=== PATIENT | male | born 1980 | race Caucasian/White ===

== ENCOUNTER 2023-05-18 19:13 | Inpatient (IN) | payer OTHER, SELFPAY ==
--- NOTE | 2023-05-18 19:12 | ECG_ITS ---
APPROVED REPORT Exam: Resting ECG HR:111 bpm ECG Measurements Heart Rate 111 AXES MT 156 P 57 QRSd 106 QRS -39 QT 322 T 70 QTc 387 Conclusion SINUS TACHYCARDIA LEFT ATRIAL ENLARGEMENT [-0.15mV P-WAVE IN V1/V2] LEFT AXIS DEVIATION [QRS AXIS < -30] MINIMAL ST DEPRESSION [0.025+ mV ST DEPRESSION] ABNORMAL ECG UNCONFIRMED REPORT Electronically signed by : Tk Dorantes MD 05/21/2023 20:42:08
[2023-05-18 19:17] VITALS: BP 140/94; PULSE 114; RESP 24; TEMP 36.7; O2SAT 99; BMI 29.0
--- NOTE | 2023-05-18 19:28 | PC.NURSE ---
I rounded on the pt and his family member. I let them know was in another room but would be right in. I asked if I could get them anything and they said they were okay at the moment. no new complaints at this time.
[2023-05-18 19:30] VITALS: BP 125/86; PULSE 103; RESP 19; O2SAT 97
--- NOTE | 2023-05-18 19:41 | CT_ITS ---
PROCEDURE INFORMATION: Exam: CTA Chest With Contrast Exam date and time: 05/18/2023 8:03 PM Age: 42 years old Clinical indication: Pain; Left-sided; Additional info: Hemoptysis, posterior L thoracic cage pain TECHNIQUE: Imaging protocol: Computed tomographic angiography of the chest with contrast. Exam focused on the arteries. 3D rendering (Not supervised by radiologist): MIP and/or 3D reconstructed images were created by the technologist. Radiation optimization: All CT scans at this facility use at least one of these dose optimization techniques: automated exposure control; mA and/or kV adjustment per patient size (includes targeted exams where dose is matched to clinical indication); or iterative reconstruction. Contrast material: ISOVUE; Contrast volume: 100 ml; Contrast route: INTRAVENOUS (IV); REPORTING DATA: Count of CT and Cardiac NM exams in prior 12 months: This patient has received 0 known CTs and 0 known cardiac nuclear medicine studies in the 12 months prior to the current study. COMPARISON: No relevant prior studies available. FINDINGS: Pulmonary arteries: Multiple pulmonary emboli within right upper, right lower and left lower lobe segmental/subsegmental pulmonary arteries. Pulmonary trunk normal in caliber measuring 2.8 cm Aorta: Unremarkable. No aortic aneurysm. No aortic dissection. Lungs: Left lower lobe consolidative and patchy opacities. Mild right lower lobe superior segment patchy opacities. Small lingular calcified granulomas. No masses. Pleural spaces: Unremarkable. No pneumothorax. No pleural effusion. Heart: Cardiomegaly. No pericardial effusion. Heart RV/LV ratio: 0.96. Coronary arteries: Mild coronary artery calcifications Lymph nodes: Shotty mediastinal lymph nodes. Liver: Punctate hepatic calcifications. Spleen: Punctate splenic calcifications. Bones/joints: Degenerative changes. No acute fracture. Soft tissues: Mild bilateral gynecomastia. IMPRESSION: 1. Multiple pulmonary emboli within right upper, right lower and left lower lobe segmental/subsegmental pulmonary arteries. No findings of right heart strain. 2. Left lower lobe, and to a much lesser extent, right lower lobe infiltrates which may be seen with infection, pulmonary edema or other alveolar process. 3. Cardiomegaly.
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
[2023-05-18] MEDS: KETOROLAC 30MG/ML VIAL 30 MG IV (19:50)
[2023-05-18] MEDS: ACETAMINOPHEN 500MG TAB 1000 MG PO (19:50)
[2023-05-18 19:51] LABS: Chloride 102 mmol/L (98-107)
[2023-05-18] MEDS: METHOCARBAMOL 500MG TABLET 1000 MG PO (19:51)
[2023-05-18 19:52] LABS: Basophils # 0.1 K/mm3 (0-0.2); Basophils % 0.2 % (0.1-2.0); Eosinophils # 0.1 K/mm3 (0.0-0.4); Eosinophils % 0.4 % (0.1-12.0); Hematocrit 40.5 % (42.0-52.0); Hemoglobin 12.8 g/dL (14.1-18.0); Lymphocytes # 1.6 K/mm3 (0.7-4.5); Lymphocytes % 6.5 % (10-50); Mean Corpuscular HGB Conc 31.5 g/dL (31.8-35.4); Mean Corpuscular Hemoglobin 29.4 pg (27.0-31.2); Mean Corpuscular Volume 93.3 fl (80-94); Mean Platelet Volume 8.7 fl (7.4-10.4); Monocytes # 2.8 K/mm3 (0.1-1.0); Monocytes % 11.6 % (1.7-9.3); Neutrophils # 19.4 K/mm3 (1.8-7.8); Neutrophils % 81.3 % (37.0-80.0); Platelet Count 325 K/mm3 (142-424); Potassium 4.7 mmoL/L (3.5-5.1); Red Blood Count 4.34 M/mm3 (4.60-6.20); Red Cell Distribution Width 14.6 % (11.5-17.5); Sodium 138 mmol/L (136-145); White Blood Count 23.8 K/mm3 (4.8-10.8)
[2023-05-18 19:54] LABS: Alanine Aminotransferase 48 U/L (12-78); Alkaline Phosphatase 99 U/L (38-126); Anion Gap 13.7 mEq/L (5-15); Aspartate Amino Transferase 41 U/L (17-59); Bilirubin,Total 1.3 mg/dl (0.2-1.3); Blood Urea Nitrogen 19 mg/dl (9-20); Carbon Dioxide 27 mmol/L (22.0-30.0); Creatinine Clearance Estimated 154 mL/min (50-200); Estimated Glomerular Filt Rate 93 ml/min (>60); GFR (African American) 113 ML/MIN (>60); MANUAL DIFFERENTIAL MANUAL DIFFERENTIAL (MANUAL DIFF)
[2023-05-18 19:55] LABS: Albumin Level 3.9 g/dl (3.5-5.0); Albumin/Globulin Ratio 1.1 (1.1-1.8); Calcium 8.7 mg/dl (8.4-10.2); Globulin 3.4 g/dL (1.3-3.2); Glucose 127 mg/dl (74-100); Total Protein,Serum 7.3 g/dl (6.3-8.2)
--- NOTE | 2023-05-18 19:58 | PC.NURSE ---
Pt medicated for pain per MAR at this time. Pt was given warm blanket. Lab called to draw blood cultures at this time. Pt and family member state no needs at this time.
[2023-05-18 20:00] VITALS: BP 124/81; PULSE 100; RESP 22; O2SAT 96
--- NOTE | 2023-05-18 20:01 | PC.NURSE ---
RT called at this time to collect VBG from lab.
[2023-05-18 20:04] LABS: NT Pro Brain Natriuretic Pep. 3760 pg/mL (0-125)
[2023-05-18 20:06] LABS: VBG Base Excess -3.7 mmol/L (-2.4-2.3); VBG HCO3 22.6 mmol/L (23-30); VBG Oxygen Saturation 66.9 % (50-70); VBG PCO2 46.3 mmol/L (35-51); VBG PH 7.31 mmol/L (7.31-7.41); VBG PO2 39.6 mmol/L (28-40); VBG Total CO2 24.1 mmol/L (23-27)
[2023-05-18 20:10] LABS: Troponin I < 0.01 ng/ml (0.00-0.034)
--- NOTE | 2023-05-18 20:15 | PC.NURSE ---
notified of code sepsis, states no fluids because pt has heart failure.
[2023-05-18 20:19] LABS: Lactic Acid 1.7 mmol/L (0.7-2.1)
[2023-05-18 20:22] LABS: Activated Partial Thrombo Time 25.4 seconds (22.8-30.6); INR 1.14 (0.9-1.1); Prothrombin Time 12.2 seconds (10.1-12.5)
[2023-05-18] MEDS: SODIUM CHLORIDE 0.9% 10ML SYR (RAD ONLY) 10 ML IV (20:22)
[2023-05-18] MEDS: 0.9 % SODIUM CHLORIDE 50 ML VIAL IV (20:22)
[2023-05-18] MEDS: IOPAMIDOL-370 (76%);100ML BOTTLE 100 ML IV (20:22)
[2023-05-18 20:31] VITALS: BP 133/87; PULSE 104; RESP 21; O2SAT 96
--- NOTE | 2023-05-18 20:36 | PC.NURSE ---
Lab at bedside to draw second set blood cultures at this time. 1st set drawn by Nneka Salguero, medic
--- NOTE | 2023-05-18 20:38 | PC.NURSE ---
Dr. Mcelroy does not want to admin the entire sepsis fluid bolus due the pt having fluid over load. Dr. Mcelroy just wants a 500ml bolus per the orders.
--- NOTE | 2023-05-18 20:48 | PC.NURSE ---
Blue band placed on pt
[2023-05-18] MEDS: CEFTRIAXONE 1 GM 1 GM in 0.9 % SODIUM CHLORIDE 50 ML IV (20:54)
[2023-05-18] MEDS: 0.9 % SODIUM CHLORIDE 1000ML 500 ML 999 ML IV (20:54)
[2023-05-18 21:02] LABS: Lymphocytes % 6 % (10-50); Monocytes % 6 % (2-9); Neutrophils % 88 % (42-76); Platelet Estimate Normal; RBC Morphology Normal; Total Cells Counted 100
--- NOTE | 2023-05-18 21:02 | PC.NURSE ---
MD Mcelroy wants to give 500ml bolus. Started at this time per MAR.
--- NOTE | 2023-05-18 21:25 | PC.NURSE ---
OBSERVATION ADMISSION TO 208 WITH DX OF PNA AND SEPSIS TO SERVICE OF THE HOSPITALIST.
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
[2023-05-18 21:42] VITALS: BP 142/81; PULSE 98; RESP 17; TEMP 36.8; O2SAT 97
--- NOTE | 2023-05-18 21:42 | PC.NURSE ---
report called to shweta braxton on med surg
--- NOTE | 2023-05-18 21:47 | PC.NURSE ---
pt arrived to floor via wheelchair @21:46
[2023-05-18] MEDS: AZITHROMYCIN 500 MG in 0.9 % SODIUM CHLORIDE 250 ML 250 MG IV (21:52)
[2023-05-18 21:55] LABS: D-Dimer 0.99 ug/mL (0.0-0.5)
[2023-05-18] MEDS: ENOXAPARIN 100MG/ML SYRINGE 100 MG SQ (22:11)
[2023-05-18 22:15] VITALS: BP 142/81; PULSE 97; RESP 17; TEMP 36.8; O2SAT 96; BMI 29.8
[2023-05-18 22:45] LABS: Troponin I < 0.01 ng/ml (0.00-0.034)
[2023-05-18] MEDS: MORPHINE 2MG/ML SYRINGE 2 MG IV (23:11)
[2023-05-19] VITALS (12 sets, daily range): BP systolic 108–158; BP diastolic 61–116; PULSE 83–115; RESP 17–24; TEMP 36.6–36.9; O2SAT 96–100; BMI 29.8
--- NOTE | 2023-05-19 | IR_ITS ---
APPROVED REPORT Patient Location: Inpatient 3D Artist: ABEBE Marshall RT (R) PROCEDURES Left heart catheterization Left ventriculogram Selective coronary angiogram Right femoral venous access Informed consent was obtained prior to the procedure. COMPLICATIONS None Estimated Blood Loss: Less than 10 ml TECHNIQUE One percent lidocaine was used to anesthetize the right anterior aspect of the right wrist. The right radial artery was accessed via the Seldinger technique and a 6 Iranian hydrophilic sheath was placed in the right radial artery. Following this one percent lidocaine was used to anesthetize the right anterior aspect of the right neck. The right internal jugular vein was accessed via the Seldinger technique and a 7 Iranian sheath was placed in the right internal jugular vein. Following this an arterial cocktail was administered using 5000U heparin, 2.5 mg verapamil, 1mg Lidocaine and 800mcg nitroglycerin into the right radial sheath. A papa catheter was used to perform left heart catheterization left ventriculogram and selective coronary angiography. 1% lidocaine was used anesthetize the right groin and the right femoral vein was accessed via the Salinger technique. Following diagnostic cardiac angiography it was decided not to pursue pulmonary artery embolectomy therefore both sheaths were removed and patient was transferred to the postop putting in stable condition ANGIOGRAPHIC RESULTS The left main artery Normal The left anterior descending artery Is proximally patent and then has a 40 to 50% stenosis proximal to a large bifurcating first diagonal artery. The first diagonal artery has 70% tandem stenoses. The LAD is then occluded after the large diagonal artery and fills scantly via right to left collaterals The circumflex artery Is nondominant. The first and second obtuse marginal artery are subtotally occluded proximally and fills scantly via left to left collaterals. The right coronary artery Is a dominant vessel and has ostial 50% stenosis followed by proximal concentric 80% stenosis with mid vessel 60 to 70% stenoses The SORIA ventriculogram reveals Severely dilated severely hypokinetic estimate ejection fraction 5 to 10% The left ventricular end-diastolic pressure Severely critically elevated at 40 mmHg IMPRESSION Severe to critical three-vessel coronary disease as described above with a chronically occluded LAD which fills scantly via right to left collaterals Chronically occluded nondominant circumflex artery which fills scantly via left to left collaterals Severe left ventricular dilatation with severely reduced ejection fraction Severe to critical elevated LVEDP Persistent pulmonary embolism PLAN 1. Bumex 4 mg IV now 2. Efforts will be made to transfer patient to [facility] for evaluation of advanced left ventricular support versus possible revascularization 3. Start heparin drip for treatment of PEs Electronically signed by : Paul Bolton MD 05/19/2023 14:27:17
[2023-05-19 01:57] LABS: Troponin I < 0.01 ng/ml (0.00-0.034)
[2023-05-19] MEDS: MORPHINE 2MG/ML SYRINGE 2 MG IV ×2 (03:44→11:30)
[2023-05-19] MEDS: KETOROLAC 30MG/ML VIAL 30 MG IV ×3 (04:03→15:14)
--- NOTE | 2023-05-19 05:21 | PC.NURSE ---
Since arriving to the floor the patient was able to rest some. Patient pain was controlled when he arrived to the floor. The patient woke up around 3:40 in horrible pain. Morphine was not helping the patient so RN called the [facility] and got a dose of Toradol patient stated that helped the most in the ER. The patient did also get in the shower to see if the warm water would help at all. No other issues besides pain control were noted this shift
[2023-05-19] MEDS: FUROSEMIDE 100MG/10ML VIAL 80 MG IV (05:59)
[2023-05-19 06:37] LABS: Alanine Aminotransferase 38 U/L (12-78); Albumin Level 3.4 g/dl (3.5-5.0); Albumin/Globulin Ratio 1.1 (1.1-1.8); Alkaline Phosphatase 92 U/L (38-126); Anion Gap 6.5 mEq/L (5-15); Aspartate Amino Transferase 30 U/L (17-59); Basophils # 0.1 K/mm3 (0-0.2); Basophils % 0.3 % (0.1-2.0); Blood Urea Nitrogen 25 mg/dl (9-20); Calcium 8.1 mg/dl (8.4-10.2); Carbon Dioxide 30 mmol/L (22.0-30.0); Chloride 103 mmol/L (98-107); Creatinine Clearance Estimated 129 mL/min (50-200); Eosinophils # 0.1 K/mm3 (0.0-0.4); Estimated Glomerular Filt Rate 74 ml/min (>60); GFR (African American) 90 ML/MIN (>60); Glucose 136 mg/dl (74-100); Lymphocytes # 1.4 K/mm3 (0.7-4.5); Potassium 4.5 mmoL/L (3.5-5.1); Red Cell Distribution Width 14.6 % (11.5-17.5); Sodium 135 mmol/L (136-145); Total Protein,Serum 6.4 g/dl (6.3-8.2)
[2023-05-19 07:07] LABS: Eosinophils % 0.3 % (0.1-12.0); Hematocrit 37.4 % (42.0-52.0); Lymphocytes % 6.8 % (10-50); Mean Corpuscular HGB Conc 30.7 g/dL (31.8-35.4); Mean Corpuscular Hemoglobin 29.3 pg (27.0-31.2); Mean Corpuscular Volume 95.3 fl (80-94); Mean Platelet Volume 8.6 fl (7.4-10.4); Monocytes # 1.9 K/mm3 (0.1-1.0); Monocytes % 9.3 % (1.7-9.3); Neutrophils # 16.8 K/mm3 (1.8-7.8); Neutrophils % 83.4 % (37.0-80.0); Platelet Count 293 K/mm3 (142-424); Red Blood Count 3.92 M/mm3 (4.60-6.20); White Blood Count 20.1 K/mm3 (4.8-10.8)
[2023-05-19 07:12] LABS: MANUAL DIFFERENTIAL MANUAL DIFFERENTIAL (MANUAL DIFF)
--- NOTE | 2023-05-19 08:10 | HMH.PHAINT1 ---
Pharmacy Intervention Comments: Home med list verified with patient at bedside and with external pharmacy list.
[2023-05-19] MEDS: ENOXAPARIN 100MG/ML SYRINGE 100 MG SQ (08:32)
[2023-05-19] MEDS: METOPROLOL SUCCINATE XL 25MG TABLET 25 MG PO (08:32)
[2023-05-19] MEDS: PANTOPRAZOLE 40MG TABLET 40 MG PO (08:32)
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
--- NOTE | 2023-05-19 08:48 | CA_ITS ---
FINAL REPORT CLINICAL HISTORY: BILATERAL PE'S,SOA,EDEMA LE'S COMPARISON: None FINDINGS: Color Doppler, duplex Doppler and compression sonography of the bilateral lower extremities was performed. On the right side, there is no evidence of deep venous thrombosis from the level of the groin to the calf. The deep veins are patent and compressible. On the left side, there is thrombus present in the left popliteal vein. The remainder of the veins on the left side are compressible and patent. IMPRESSION: Thrombus is present in the left popliteal vein. No evidence of deep venous thrombosis is present in the right leg. Reviewed, Interpreted and Dictated by Jeff Tracy III, MD Transcribed by Vanessa Gordon Authenticated and [facility]
[2023-05-19] MEDS: ACETAMINOPHEN 325MG TAB 650 MG PO (09:39)
[2023-05-19 10:08] LABS: Lymphocytes % 3 % (10-50); Monocytes % 11 % (2-9); Neutrophils % 86 % (42-76); Total Cells Counted 100
[2023-05-19 10:11] LABS: Anisocytosis 1+; Hypochromasia 1+; Platelet Estimate Normal; RBC Morphology Normal
[2023-05-19 10:27] LABS: Hemoglobin 11.6 g/dL (14.1-18.0)
[2023-05-19] MEDS: SACUBITRIL/VALSARTAN 24-26MG TABLET 1 EACH PO (11:32)
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
--- NOTE | 2023-05-19 11:40 | PC.NURSE ---
Courtesy Round Patient asleep with visitors at bedside.Trash emptied and linens. Call light within reach
--- NOTE | 2023-05-19 12:16 | P.PN_ITS ---
Subjective *Date: 05/19/23 *Time: 12:16 Interval history: patient was seen and evaluated at the bedside. feels overall better since admission, No reported acute events overnight Exam Data for Last 24 hours Vital signs and Labs for Last 24 Hours: Temp Pulse Resp BP Pulse Ox O2 Del Method 97.9 F 104 H 24 154/116 H 97 Room Air 05/19/23 12:15 05/19/23 12:15 05/19/23 12:15 05/19/23 12:15 05/19/23 12:15 05/19/23 12:15 Laboratory Results - last 24 hr 05/18/23 19:10: WBC 23.8 H*, RBC 4.34 L, Hgb 12.8 L, Hct 40.5 L, MCV 93.3, MCH 29.4, MCHC 31.5 L, RDW 14.6, Plt Count 325, MPV 8.7, Neut % (Auto) 81.3 H, Lymph % (Auto) 6.5 L, [place] % (Auto) 11.6 H, Eos % (Auto) 0.4, Baso % (Auto) 0.2, Neut # (Auto) 19.4 H, Lymph # (Auto) 1.6, [place] # (Auto) 2.8 H, Eos # (Auto) 0.1, Baso # (Auto) 0.1, Total Counted 100, Neutrophils % (Manual) 88 H, Lymphocytes % (M anual) 6 L, Monocytes % (Manual) 6, Platelet Estimate Normal, RBC Morphology Normal, PT 12.2, INR 1.14 H, APTT 25.4, D-Dimer 0.99 H, Sodium 138, Potassium 4.7, Chloride 102, Carbon Dioxide 27, Anion Gap 13.7, BUN 19, Creatinine 0.90, Estimated Creat Clear 154, Estimated GFR 93, Est GFR ( Amer) 113, Glucose 127 H, Lactate 1.7, Calcium 8.7, Total Bilirubin 1.3, AST 41, ALT 48, Alkaline Phosphatase 99, Troponin I < 0.01, NT-Pro-B Natriuret Pep 3760 H, Total Protein 7.3, Albumin 3.9, Globulin 3.4 H, Albumin/Globulin Ratio 1.1 05/18/23 19:41: VBG pH 7.31, VBG pCO2 46.3, VBG pO2 39.6, VBG HCO3 22.6 L, VBG Total CO2 24.1, VBG O2 Saturation 66.9, VBG Base Excess -3.7 L 05/18/23 22:15: Troponin I < 0.01 05/19/23 01:30: Troponin I < 0.01 05/19/23 06:08: WBC 20.1 H*, RBC 3.92 L, Hgb 11.6 L, Hct 37.4 L, MCV 95.3 H, MCH 29.3, MCHC 30.7 L, RDW 14.6, Plt Count 293, MPV 8.6, Neut % (Auto) 83.4 H, Lymph % (Auto) 6.8 L, [place] % (Auto) 9.3, Eos % (Auto) 0.3, Baso % (Auto) 0.3, Neut # (Auto) 16.8 H, Lymph # (Auto) 1.4, [place] # (Auto) 1.9 H, Eos # (Auto) 0.1, Baso # (Auto) 0.1, Total Counted 100, Neutrophils % (Manual) 86 H, Lymphocytes % (Manual) 3 L, Monocytes % (Manual) 11 H, Platelet Estimate Normal, RBC Morphology Normal, Hypochromasia 1+, Anisocytosis 1+, Sodium 135 L, Potassium 4.5, Chloride 103, Carbon Dioxide 30, Anion Gap 6.5, BUN 25 H D, Creatinine 1.10 D, Estimated Creat Clear 129, Estimated GFR 74, Est GFR ( Amer) 90 D, Glucose 136 H, Calcium 8.1 L, Magnesium 2.0, Total Bilirubin 1.0, AST 30 D, ALT 38, Alkaline Phosphatase 92, Total Protein 6.4, Albumin 3.4 L D, Globulin 3.0, Albumin/Globulin Ratio 1.1 I & O for Last 24 hours: Intake & Output 05/16/23 05/17/23 05/18/23 05/19/23 23:59 23:59 23:59 23:59 Intake Total 710 / 710 Output Total 0 / 0 Balance 710 / 710 Weight 102.2 kg 102.2 kg Constitutional Constitutional: no acute distress *Routine HEENT Exam Head: Present normocephalic Eye: Present EOMI and PERRL ENT: Present mucous membranes moist *Routine Neck Exam Neck: Present supple; Absent lymphadenopathy *Routine Respiratory Exam Respiratory: Present CTA bilaterally *Routine Cardiovascular Exam Cardiovascular: Present RRR *Routine Abdominal Exam Abdominal: Present soft and normoactive bowel sounds; Absent tenderness *Routine Extremities Exam Extremities: Absent cyanosis, clubbing or edema *Routine Skin Exam Skin: Present warm; Absent rash *Routine Neurological Exam Neurological: Present alert and oriented X3 Assessment and Plan *Assessment and plan (1) Pulmonary embolism: Status: Acute Qualifiers: Pulmonary embolism type: multiple subsegmental (without acute cor pulmonale) Qualified Code(s): I26.94 - Multiple subsegmental pulmonary emboli without acute cor pulmonale Category: Medical Code(s): I26.99 - Other pulmonary embolism without acute cor pulmonale (2) Dyspnea: Status: Acute Qualifiers: Dyspnea type: shortness of breath Qualified Code(s): R06.02 - Shortness of breath Category: Medical Code(s): R06.00 - Dyspnea, unspecified (3) Left lower lobe pneumonia: Status: Acute Qualifiers: Pneumonia type: due to unspecified organism Qualified Code(s): J18.9 - Pneumonia, unspecified organism Category: Medical Code(s): J18.9 - Pneumonia, unspecified organism (4) Elevated brain natriuretic peptide (BNP) level: Status: Acute Category: Medical Code(s): R79.89 - Other specified abnormal findings of blood chemistry (5) Localized edema due to fluid overload: Status: Acute Category: Medical Code(s): E87.70 - Fluid overload, unspecified (6) Current smoker: Status: Acute Category: Social Hx Code(s): F17.200 - Nicotine dependence, unspecified, uncomplicated Plan 2-year-old male with no significant known past medical history other than former drugs user, current smoker that almost week ago went to his primary doctor concerning of peripheral edema and SOB. presented today with an episode of hemoptysis. On arrival, patient with significant respiratory distress, tachycardic. Complaining of pain on the left thoracic back, with peripheral edema. Initial workup included CTA of the chest, images reviewed. There is a concern for multiple bilateral PEs. No right heart strain concern. There is also a left lower pneumonia, with right lobar edema. Labs are significant for leukocytosis. Findings discussed with the ER. Admitted for admission. Plan as follow: -Multiple subsegmental pulmonary embolism. Bilateral: Pulmonology consult Started on Lovenox therpeutic dosage Oxygen as needed Monitor vital signs per unit per unit protocol -Left lower pneumonia: Started on ceftriaxone and Zithromax Blood cultures pending Monitor labs in the morning Monitor for sepsis -Elevated BNP with peripheral lower edema: Suspected drug-induced heart failure: 1 dose of Lasix given. Cardiology consult Obtain echo Current smoker: On nicotine patch. Education provided on smoke cessation Lovenox full dose. On Protonix for GI prophylaxis Full code continue Abx, Lovenox treatment dose, dc 1-2 days
[2023-05-19] MEDS: 0.9 % SODIUM CHLORIDE 500 ML 25 ML IV (13:39)
[2023-05-19] MEDS: HEPARIN 1,000 UNITS/ML 10ML VIAL (CATH LAB) 10000 UNIT IV (13:39)
[2023-05-19] MEDS: LIDOCAINE 1% 10ML MDV 20 ML IJ (13:39)
[2023-05-19] MEDS: HEPARIN 1,000 UNITS/500ML NS (CATH LAB) 3000 UNIT IV (13:39)
[2023-05-19] MEDS: NITROGLYCERIN 800MCG/8ML SYR (CATH LAB) 800 MCG IA (13:40)
[2023-05-19] MEDS: diphenhydrAMINE 50MG/ML VIAL 50 MG IV (13:40)
[2023-05-19] MEDS: FENTANYL 100MCG/2ML VIAL 25 MCG IV (13:55)
[2023-05-19] MEDS: MIDAZOLAM HCL 1MG/1ML 5ML VIAL 1 MG IV (13:56)
[2023-05-19] MEDS: BUMETANIDE IV (14:17)
[2023-05-19] MEDS: FUROSEMIDE 40MG/4ML VIAL 40 MG IV (14:17)
[2023-05-19] MEDS: SODIUM CHLORIDE 0.9% IV (14:17)
[2023-05-19] MEDS: IOPAMIDOL-370 (76%);100ML BOTTLE 80 ML IV (14:36)
[2023-05-19 14:51] LABS: Microscopic, Urine URINE MICROSCOPIC (MICROSCOPIC)
[2023-05-19 14:55] LABS: Appearance,Urine CLEAR (Clear); Bilirubin,Urine Negative (Negative); Blood, Urine TRACE-I (Negative); Color,Urine YELLOW (Yellow); Glucose,Urine (UA) Negative (Negative); Ketones,Urine Negative (Negative); Leukocyte Esterase,Urine Negative (Negative); Nitrate,Urine Negative (Negative); Protein,Urine Negative (Negative); Specific Gravity, Urine 1.015 (1.005-1.030); Urobilinogen,Urine 0.2 EU/dl (0.2)
[2023-05-19 15:03] LABS: PTT Heparin (inpatient only) 90.5 Seconds (23.6-34.0)
[2023-05-19 15:15] LABS: Amorphous Sediment,Urine Trace /lpf; RBC,Urine Occasional #/hpf (0-3); Squamous Epithelial Cell,Urine Occasional #/hpf (0-5)
[2023-05-19] MEDS: HEPARIN SODIUM,PORCINE/D5W 500 ML 20 UNIT IV (15:19)
--- NOTE | 2023-05-19 15:55 | P.DS_ITS ---
General Admission date:: 05/18/23 Discharge date: 05/19/23 HPI HPI HPI: This is a 42-year-old male with no significant known past medical history other than former drugs user, current smoker that almost week ago went to his primary doctor concerning of peripheral edema and SOB. they started on Lasix and metoprolol (no reported cardiovascular evaluation)/ Today he presented to the emergency department for evaluation of hemoptysis. Onset was acute, occurring over the last 24 to 48 hours. Patient has been coughing bright red blood. He has shortness of breath laying down at baseline however it is much worse than normal. He has left posterior inferior thoracic cage pain with deep inspiration. He has been told that he has water around his lungs before which is why he is on Lasix. He has chest pain that occurs only with deep inspiration, does not occur at rest. No others complaints at this time. Admitted for further work up and treatment. Hospital Course Hospital Course Hospital Course: 42 year-old male with no significant known past medical history other than former drugs user, current smoker that almost week ago went to his primary doctor concerning of peripheral edema and SOB. presented today with an episode of hemoptysis. On arrival, patient with significant respiratory distress, tach ycardic. Complaining of pain on the left thoracic back, with peripheral edema. Initial workup included CTA of the chest, images reviewed. There is a concern for multiple bilateral PEs. No right heart strain concern. There is also a left lower pneumonia, with right lobar edema. Labs are significant for leukocytosis. Findings discussed with the ER. Admitted for admission. Plan as follow: -Multiple subsegmental pulmonary embolism. Bilateral: Pulmonology consult Started on Lovenox therpeutic dosage Oxygen as needed Monitor vital signs per unit per unit protocol -Left lower pneumonia: Started on ceftriaxone and Zithromax Blood cultures pending Monitor labs in the morning Monitor for sepsis -Elevated BNP with peripheral lower edema: Suspected drug-induced heart failure: 1 dose of Lasix given. Cardiology consult Obtain echo Current smoker On nicotine patch. Education provided on smoke cessation Lovenox full dose. On Protonix for GI prophylaxis Full code continue Abx, Lovenox treatment dose, dc 1-2 days plan to transfer to Exam Data for Last 24 hours Vital signs and Labs for Last 24 Hours: Temp Pulse Resp BP Pulse Ox O2 Del Method O2 Flow Rate 97.9 F 93 H 18 132/75 100 Simple Mask 6 05/19/23 12:15 05/19/23 15:00 05/19/23 15:00 05/19/23 15:00 05/19/23 15:00 05/19/23 15:00 05/19/23 15:00 Laboratory Results - last 24 hr 05/18/23 19:10: WBC 23.8 H*, RBC 4.34 L, Hgb 12.8 L, Hct 40.5 L, MCV 93.3, MCH 29.4, MCHC 31.5 L, RDW 14.6, Plt Count 325, MPV 8.7, Neut % (Auto) 81.3 H, Lymph % (Auto) 6.5 L, [place] % (Auto) 11.6 H, Eos % (Auto) 0.4, Baso % (Auto) 0.2, Neut # (Auto) 19.4 H, Lymph # (Auto) 1.6, [place] # (Auto) 2.8 H, Eos # (Auto) 0.1, Baso # (Auto) 0.1, Total Counted 100, Neutrophils % (Manual) 88 H, Lymphocytes % (Manual) 6 L, Monocytes % (Manual) 6, Platelet Estimate Normal, RBC Morphology Normal, PT 12.2, INR 1.14 H, APTT 25.4, D-Dimer 0.99 H, Sodium 138, Potassium 4.7, Chloride 102, Carbon Dioxide 27, Anion Gap 13.7, BUN 19, Creatinine 0.90, Estimated Creat Clear 154, Estimated GFR 93, Est GFR ( Amer) 113, Glucose 127 H, Lactate 1.7, Calcium 8.7, Total Bilirubin 1.3, AST 41, ALT 48, Alkaline Phosphatase 99, Troponin I < 0.01, NT-Pro-B Natriuret Pep 3760 H, Total Protein 7.3, Albumin 3.9, Globulin 3.4 H, Albumin/Globulin Ratio 1.1 05/18/23 19:41: VBG pH 7.31, VBG pCO2 46.3, VBG pO2 39.6, VBG HCO3 22.6 L, VBG Total CO2 24.1, VBG O2 Saturation 66.9, VBG Base Excess -3.7 L 05/18/23 22:15: Troponin I < 0.01 05/19/23 01:30: Troponin I < 0.01 05/19/23 06:08: WBC 20.1 H*, RBC 3.92 L, Hgb 11.6 L, Hct 37.4 L, MCV 95.3 H, MCH 29.3, MCHC 30.7 L, RDW 14.6, Plt Count 293, MPV 8.6, Neut % (Auto) 83.4 H, Lymph % (Auto) 6.8 L, [place] % (Auto) 9.3, Eos % (Auto) 0.3, Baso % (Auto) 0.3, Neut # (Auto) 16.8 H, Lymph # (Auto) 1.4, [place] # (Auto) 1.9 H, Eos # (Auto) 0.1, Baso # (Auto) 0.1, Total Counted 100, Neutrophils % (Manual) 86 H, Lymphocytes % (Manual) 3 L, Monocytes % (Manual) 11 H, Platelet Estimate Normal, RBC Morphology Normal, Hypochromasia 1+, Anisocytosis 1+, Sodium 135 L, Potassium 4.5, Chloride 103, Carbon Dioxide 30, Anion Gap 6.5, BUN 25 H D, Creatinine 1.10 D, Estimated Creat Clear 129, Estimated GFR 74, Est GFR ( Amer) 90 D, Glucose 136 H, Calcium 8.1 L, Magnesium 2.0, Total Bilirubin 1.0, AST 30 D, ALT 38, Alkaline Phosphatase 92, Total Protein 6.4, Albumin 3.4 L D, Globulin 3.0, Albumin/Globulin Ratio 1.1 05/19/23 14:00: APTT 90.5 H* 05/19/23 14:50: Urine Color Yellow, Urine Appearance Clear, Urine pH 6.0, Ur Specific [place] 1.015, Urine Protein Negative, Urine Glucose (UA) Negative, Urine Ketones Negative, Urine Blood Trace-i, Urine Nitrate Negative, Urine Bilirubin Negative, Urine Urobilinogen 0.2, Ur Leukocyte Esterase Negative, Urine RBC Occasional, Urine WBC None, Ur Squamous Epith Cells Occasional, Amorphous Sediment Trace, Urine Bacteria None I & O for Last 24 hours: Intake & Output 05/16/23 05/17/23 05/18/23 05/19/23 23:59 23:59 23:59 23:59 Intake Total 710 / 710 Output Total 1999 Balance -1290 / -1290 Weight 102.2 kg 102.2 kg Constitutional Constitutional: no acute distress *Routine HEENT Exam Head: Present normocephalic Eye: Present EOMI and PERRL ENT: Present mucous membranes moist *Routine Neck Exam Neck: Present supple; Absent lymphadenopathy *Routine Respiratory Exam Respiratory: Present CTA bilaterally *Routine Cardiovascular Exam Cardiovascular: Present RRR *Routine Abdominal Exam Abdominal: Present soft and normoactive bowel sounds; Absent tenderness *Routine Extremities Exam Extremities: Absent cyanosis, clubbing or edema *Routine Skin Exam Skin: Present warm; Absent rash *Routine Neurological Exam Neurological: Present alert and oriented X3 Results Data Completed and Pending Labs on day of discharge: Labs from last 24 hours 05/19/23 05/19/23 05/19/23 14:50 14:00 06:08 WBC 20.1 H* RBC 3.92 L Hgb 11.6 L Hct 37.4 L MCV 95.3 H MCH 29.3 MCHC 30.7 L RDW 14.6 Plt Count 293 MPV 8.6 Neut % (Auto) 83.4 H Lymph % (Auto) 6.8 L [place] % (Auto) 9.3 Eos % (Auto) 0.3 Baso % (Auto) 0.3 Neut # (Auto) 16.8 H Lymph # (Auto) 1.4 [place] # (Auto) 1.9 H Eos # (Auto) 0.1 Baso # (Auto) 0.1 Total Counted 100 Neutrophils % (Manual) 86 H Lymphocytes % (Manual) 3 L Monocytes % (Manual) 11 H Platelet Estimate Normal RBC Morphology Normal Hypochromasia 1+ Anisocytosis 1+ PT INR APTT 90.5 H* D-Dimer VBG pH VBG pCO2 VBG pO2 VBG HCO3 VBG Total CO2 VBG O2 Saturation VBG Base Excess Sodium 135 L Potassium 4.5 Chloride 103 Carbon Dioxide 30 Anion Gap 6.5 BUN 25 H D Creatinine 1.10 D Estimated Creat Clear 129 Estimated GFR 74 Est GFR ( Amer) 90 D Glucose 136 H Lactate Calcium 8.1 L Magnesium 2.0 Total Bilirubin 1.0 AST 30 D ALT 38 Alkaline Phosphatase 92 Troponin I NT-Pro-B Natriuret Pep Total Protein 6.4 Albumin 3.4 L D Globulin 3.0 Albumin/Globulin Ratio 1.1 Urine Color Yellow Urine Appearance Clear Urine pH 6.0 Ur Specific [place] 1.015 Urine Protein Negative Urine Glucose (UA) Negative Urine Ketones Negative Urine Blood Trace-i Urine Nitrate Negative Urine Bilirubin Negative Urine Urobilinogen 0.2 Ur Leukocyte Esterase Negative Urine RBC Occasional Urine WBC None Ur Squamous Epith Cells Occasional Amorphous Sediment Trace Urine Bacteria None 05/19/23 05/18/23 05/18/23 01:30 22:15 19:41 WBC RBC Hgb Hct MCV MCH MCHC RDW Plt Count MPV Neut % (Auto) Lymph % (Auto) [place] % (Auto) Eos % (Auto) Baso % (Auto) Neut # (Auto) Lymph # (Auto) [place] # (Auto) Eos # (Auto) Baso # (Auto) Total Counted Neutrophils % (Manual) Lymphocytes % (Manual) Monocytes % (Manual) Platelet Estimate RBC Morphology Hypochromasia Anisocytosis PT INR APTT D-Dimer VBG pH 7.31 VBG pCO2 46.3 VBG pO2 39.6 VBG HCO3 22.6 L VBG Total CO2 24.1 VBG O2 Saturation 66.9 VBG Base Excess -3.7 L Sodium Potassium Chloride Carbon Dioxide Anion Gap BUN Creatinine Estimated Creat Clear Estimated GFR Est GFR ( Amer) Glucose Lactate Calcium Magnesium Total Bilirubin AST ALT Alkaline Phosphatase Troponin I < 0.01 < 0.01 NT-Pro-B Natriuret Pep Total Protein Albumin Globulin Albumin/Globulin Ratio Urine Color Urine Appearance Urine pH Ur Specific [place] Urine Protein Urine Glucose (UA) Urine Ketones Urine Blood Urine Nitrate Urine Bilirubin Urine Urobilinogen Ur Leukocyte Esterase Urine RBC Urine WBC Ur Squamous Epith Cells Amorphous Sediment Urine Bacteria 05/18/23 19:10 WBC 23.8 H* RBC 4.34 L Hgb 12.8 L Hct 40.5 L MCV 93.3 MCH 29.4 MCHC 31.5 L RDW 14.6 Plt Count 325 MPV 8.7 Neut % (Auto) 81.3 H Lymph % (Auto) 6.5 L [place] % (Auto) 11.6 H Eos % (Auto) 0.4 Baso % (Auto) 0.2 Neut # (Auto) 19.4 H Lymph # (Auto) 1.6 [place] # (Auto) 2.8 H Eos # (Auto) 0.1 Baso # (Auto) 0.1 Total Counted 100 Neutrophils % (Manual) 88 H Lymphocytes % (Manual) 6 L Monocytes % (Manual) 6 Platelet Estimate Normal RBC Morphology Normal Hypochromasia Anisocytosis PT 12.2 INR 1.14 H APTT 25.4 D-Dimer 0.99 H VBG pH VBG pCO2 VBG pO2 VBG HCO3 VBG Total CO2 VBG O2 Saturation VBG Base Excess Sodium 138 Potassium 4.7 Chloride 102 Carbon Dioxide 27 Anion Gap 13.7 BUN 19 Creatinine 0.90 Estimated Creat Clear 154 Estimated GFR 93 Est GFR ( Amer) 113 Glucose 127 H Lactate 1.7 Calcium 8.7 Magnesium Total Bilirubin 1.3 AST 41 ALT 48 Alkaline Phosphatase 99 Troponin I < 0.01 NT-Pro-B Natriuret Pep 3760 H Total Protein 7.3 Albumin 3.9 Globulin 3.4 H Albumin/Globulin Ratio 1.1 Urine Color Urine Appearance Urine pH Ur Specific [place] Urine Protein Urine Glucose (UA) Urine Ketones Urine Blood Urine Nitrate Urine Bilirubin Urine Urobilinogen Ur Leukocyte Esterase Urine RBC Urine WBC Ur Squamous Epith Cells Amorphous Sediment Urine Bacteria DS: Diagnosis Discharge Diagnosis (1) Pulmonary embolism: Status: Acute Code(s): I26.99 - Other pulmonary embolism without acute cor pulmonale Qualifiers: Pulmonary embolism type: multiple subsegmental (without acute cor pulmonale) Qualified Code(s): I26.94 - Multiple subsegmental pulmonary emboli without acute cor pulmonale (2) Elevated brain natriuretic peptide (BNP) level: Status: Acute Code(s): R79.89 - Other specified abnormal findings of blood chemistry (3) Left lower lobe pneumonia: Status: Acute Code(s): J18.9 - Pneumonia, unspecified organism Qualifiers: Pneumonia type: due to unspecified organism Qualified Code(s): J18.9 - Pneumonia, unspecified organism (4) Current smoker: Status: Acute Code(s): F17.200 - Nicotine dependence, unspecified, uncomplicated (5) Dyspnea: Status: Acute Code(s): R06.00 - Dyspnea, unspecified Qualifiers: Dyspnea type: shortness of breath Qualified Code(s): R06.02 - Shortness of breath (6) Cardiomyopathy: Status: Acute Code(s): I42.9 - Cardiomyopathy, unspecified Qualifiers: Cardiomyopathy type: ischemic Qualified Code(s): I25.5 - Ischemic cardiomyopathy (7) CHF (congestive heart failure): Status: Acute Code(s): I50.9 - Heart failure, unspecified Qualifiers: Heart failure chronicity: acute Heart failure type: systolic Qualified Code(s): I50.21 - Acute systolic (congestive) heart failure Meds Home Medications and Allergies Home Medications Medication Instructions Recorded Confirmed Type guaifenesin 600 mg tablet, 600 mg PO BID PRN Cough 04/20/23 05/18/23 History extended release 12 hr (Mucinex) metoprolol succinate 25 mg 25 mg PO DAILY High Blood Pressure 05/18/23 05/18/23 History tablet,extended release 24 hr New Prescriptions to Start Prescriptions: Allergies Allergy/AdvReac Type Severity Reaction Status Date / Time No Known Allergies Allergy Verified 04/20/23 13:38 Discharge Plan Disposition Patient Disposition: Xfer Short-Term Hosp Condition: Fair Discharge Order Discharge Orders: Discharge Order (Routine); Ordered 05/19/23 Ordered By: Rosalee Dunlap Follow up Plan Prescriptions/Medication Reconciliation: No Action guaifenesin [Mucinex] 600 mg tablet extended release 12hr 600 mg PO BID PRN (Reason: Cough) metoprolol succinate 25 mg tablet extended release 24 hr 25 mg PO DAILY Problem Reconciliation Problems Reviewed?: Yes Patient Discharge Instructions Stand Alone Forms: Transfer Record Patient Instructions: Pulmonary Embolism, DI for Pneumonia -- Adult, DI for Pulmonary Embolism, DI for Sepsis -- Adult Providers Primary Care Provider: Vega Dukes Admit Provider: Forrest Carlin Attending Provider: Forrest Carlin
--- NOTE | 2023-05-19 21:33 | CA_ITS ---
APPROVED REPORT EXAM: Comprehensive 2D, Doppler, and color-flow Echocardiogram Laserist: STARR Escobedo, RVS Ht: 6 ft 0 in Wt: 225lbs BSA: 2.24 BP: 133/87 mmHg Indications: Decreased LVF per ER scan, SOA, Pneumonia, Pulmonary emboli, Pedal edema X 1 month 2D Dimensions IVSd 1.04 cm M: 0.6-1.2 LVEF (Visual) 15.90 % PWd 1.08 cm M: 0.6 - 1.2 LA Volume 129.70 mL LVDd 7.43 cm M: 4.2 - 5.9 LA Volume Index [id number] mL/m2 (M/F) 16-34 LVDs 6.88 cm M: 2.5 - 4.0 Left Atrium 4.55 cm M: 3.0 - 4.0 M-Mode Dimensions RVDd 2.68 cm (0.9-2.6) LA Diam 4.75 cm (1.9-4.0) LVDd 6.78 cm (3.5-5.7) LVDs 7.09 cm (3.5-5.7) IVSd 1.12 cm (0.6-1.1) PWd 1.25 cm (0.6-1.1) EF (Teich) 10.60% EPSs 2.87 cm FS 4.60% EDV (Teich) 237.70 mL TAPSE 1.88 (<1.7) ESV (Teich) 262.90 mL LV Diastology E Decel Time 177 (160-240 msec) E/A Ratio 2.79 MED A' 6.30 cm/s LAT A' 8.70 cm/s Aortic Valve JAJA Index 1.05 cm2/m2 AoV Peak Gt. 99.0 (50-130 cm/s) AO Peak GR. 3.90 mmHg AO Mean GR. 1.90 (<5 mmHg) AO VTI 14.4 (18-25 cm) JAJA (VTI) 2.41 (2.5-4.5 cm2) Mitral Valve MV A Velocity 42.0 (40-130 cm/s) E/A Ratio 2.79 Tricuspid Valve TR P. Velocity 250.00 cm/s RAP Estimate 10.00 mmHg RVSP 34.90 mmHg Left Ventricle Left ventricle is severely dilated (LVEDVi 120 ml/m2). Left ventricular systolic function is severely decreased. There is normal left ventricular wall thickness. There is severe global hypokinesis present. There is akinesis of the septal and anteroseptal LV prabhakar. Grade 3 diastolic dysfunction is present. LVEF is 15%. Right Ventricle Right ventricle is moderate to severely dilated. Right ventricle is moderately hypokinetic. Atria Left atrium is severely dilated. Right atrium is severely dilated. Aortic Valve The aortic valve opens well. There is no aortic valvular stenosis. No aortic regurgitation is present. Mitral Valve The mitral valve is normal in structure. No evidence of mitral valve stenosis. Mild mitral regurgitation. Tricuspid Valve The tricuspid valve leaflets are thin and pliable. Mild tricuspid regurgitation. RVSP is 20-25 mmHg. Pulmonic Valve The pulmonary valve is normal in structure. Trace pulmonic regurgitation. Great Vessels The aortic root is normal in size. The ascending aorta is normal in size. IVC is normal in size and collapses >50% with inspiration. Pericardium There is no pericardial effusion. Other Information Study Quality: Adequate Conclusion Severely dilated LV with severe reduction in LV systolic function (LVEF 15%). Grade 3 diastolic dysfunction. Moderate to severe RV dilation with moderate reduction in RV function. Severe biatrial dilation. Mild MR. Mild TR. In addition to the workup for the patient's known acute PE, further evaluation for the etiology of the reduction in biventricular function is recommended with ischemia evaluation, as well as cardiac MRI (cardiomyopathy protocol). Electronically signed by : Anna Segura MD 05/19/2023 11:53:29
== END 2023-05-19 16:11 | disposition home or self-care (01) | DRG 175 ==
LOC: ER 19:24 → 2ND 22:03
PROVIDERS: Internal Medicine; Nurse Practitioner Family; Admitting Provider Internal Medicine Adolescent Medicine; Emergency Provider Emergency Medicine; PCP Family Medicine; Visit Provider Internal Medicine Adolescent Medicine
PROC: 4A023N7 Measurement of Cardiac Sampling and Pressure, Left Heart, Percutaneous Approach (ICD-10-PCS; principal; 2023-05-19 12:00)
DX: I26.94 Multiple subsegmental thrombotic pulmonary emboli without acute cor pulmonale (principal); J18.9 Pneumonia, unspecified organism; F17.200 Nicotine dependence, unspecified, uncomplicated; Z96.641 Presence of right artificial hip joint; Z71.6 Tobacco abuse counseling; I25.10 Atherosclerotic heart disease of native coronary artery without angina pectoris; I25.5 Ischemic cardiomyopathy; I50.9 Heart failure, unspecified
CPT/HCPCS: 36415; 71275; 80053; 81001; 82803; 83605; 83735; 83880; 84484; 85007; 85025; 85378; 85610; 85730; 87040; 93005; 93306; 93458; 93970; 99152; 99153; 99285; C1725; C1760; C1769; C1894; J0456; J0696; J1644; Q9967

== ENCOUNTER 2023-06-16 13:32 | Outpatient (CLI) | payer OTHER, SELFPAY ==
--- NOTE | 2023-06-16 | CA_ITS ---
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 Right ankle edema with redness @ surgical incision. COMPARISON: 05/19/2023 FINDINGS: RIGHT LEG VENOUS DOPPLER: Femoral and popliteal veins show normal compressibility and flow. Visualized portion of the calf veins are patent by Doppler exam. IMPRESSION: No evidence of right lower extremity deep venous thrombosis Reviewed, Interpreted and Dictated by Felisa Belcher MD Transcribed by Vanessa Gordon Authenticated and [facility]
== END 2023-06-16 23:59 ==
LOC: RT 13:34
PROVIDERS: PCP Family Medicine; Visit Provider Thoracic Surgery (Cardiothoracic Vascular Surgery)
DX: R60.9 Edema, unspecified (principal)
CPT/HCPCS: 93971

== ENCOUNTER 2023-06-18 10:50 | Outpatient (RCR) | payer OTHER, MEDICAID, SELFPAY | END 2023-08-03 07:46 | disposition home or self-care (01) | LOC: PT 10:50 | PROVIDERS: PCP Internal Medicine; Visit Provider Nurse Practitioner Acute Care | DX: R53.81 Other malaise (principal); Z95.1 Presence of aortocoronary bypass graft | CPT/HCPCS: 97163 ==

== ENCOUNTER 2023-07-24 09:48 | Outpatient (RCR) | payer MEDICAID, SELFPAY | END 2023-09-09 15:00 | disposition home or self-care (01) | LOC: PT 09:48 | PROVIDERS: Visit Provider Thoracic Surgery (Cardiothoracic Vascular Surgery) | DX: I25.10 Atherosclerotic heart disease of native coronary artery without angina pectoris (principal); Z95.1 Presence of aortocoronary bypass graft; Z72.0 Tobacco use | CPT/HCPCS: 93798 ==

== ENCOUNTER 2023-12-16 12:20 | Outpatient (CLI) | payer MEDICAID, SELFPAY ==
[2023-12-16 13:15] LABS: Anion Gap 13.4 mEq/L (5-15); Blood Urea Nitrogen 18 mg/dl (9-20); Calcium 9.2 mg/dl (8.4-10.2); Carbon Dioxide 28 mmol/L (22.0-30.0); Chloride 101 mmol/L (98-107); Estimated Glomerular Filt Rate 124 ml/min (>60); GFR (African American) 150 ML/MIN (>60); Glucose 105 mg/dl (74-100); Potassium 4.4 mmoL/L (3.5-5.1); Sodium 138 mmol/L (136-145)
== END 2023-12-16 23:59 | disposition home or self-care (01) ==
LOC: LAB 12:20
PROVIDERS: PCP Family Medicine; Visit Provider Internal Medicine Cardiovascular Disease
DX: I50.20 Unspecified systolic (congestive) heart failure (principal)
CPT/HCPCS: 36415; 80048

== ENCOUNTER 2024-04-20 13:42 | Outpatient (CLI) | payer MEDICAID, SELFPAY ==
[2024-04-20 14:28] LABS: Magnesium 2.1 mg/dl (1.6-2.3)
== END 2024-04-20 23:59 | disposition home or self-care (01) ==
LOC: LAB 13:43
PROVIDERS: PCP Family Medicine; Visit Provider Internal Medicine Cardiovascular Disease
DX: I50.20 Unspecified systolic (congestive) heart failure (principal)
CPT/HCPCS: 36415; 83735